=== PATIENT | female | born 1960 | race African-American/Black ===

== ENCOUNTER 2019-10-14 08:51 | Day surgery (SDC) | payer OTHER ==
[2019-10-11 17:55] VITALS: BMI 19.5
[2019-10-14] MEDS ORDERED: BUPIVACAINE HCL/PF 0.5% (5 MG/ML) 30 ML VIAL IJ ONE ×3 (10:44→11:56)
[2019-10-14] MEDS ORDERED: LIDOCAINE HCL 1%, 10 MG/ML (20ML VIAL) ONE (10:44)
[2019-10-14] MEDS ORDERED: PROPOFOL 20 ML ONE ×2 (10:46→11:19)
[2019-10-14] MEDS ORDERED: DEXAMETHASONE SOD PHOSPHATE 4 MG/1 ML VIAL ONE (10:46)
[2019-10-14] MEDS ORDERED: MIDAZOLAM HCL 2 MG/2 ML SINGLE DOSE VIAL ONE (10:46)
--- NOTE | 2019-10-14 11:00 | HP ---
History & Physical Update - History History: No Change - Physical Physical: No Change - Assessment Assessment: No Change - Plan Plan: No Change (see my office notes; informed consent obtained for excision of recurrent sebaceous cyst of the left axilla. r/t/a/'s d/w the patient.)
[2019-10-14] MEDS ORDERED: SODIUM CHLORIDE 0.9% P/F 10 ML VIAL IJ ONE (11:10)
[2019-10-14] MEDS ORDERED: ceFAZolin SODIUM 1 GM VIAL IVPB ONE (11:10)
[2019-10-14] MEDS ORDERED: ceFAZolin SODIUM 1 GM VIAL ONE (11:10)
[2019-10-14] MEDS ORDERED: BACITRACIN 15 GM TUBE TOPICAL OINTMENT ONE (11:51)
[2019-10-14] MEDS ORDERED: LIDOCAINE HCL 1%, 10 MG/ML (20ML VIAL) INF ONE (11:55)
[2019-10-14] MEDS ORDERED: ONDANSETRON 4 MG/2 ML VIAL IVPUSH PRN (12:09)
[2019-10-14] MEDS ORDERED: oxyCODONE HCL 5 MG TABLET PO PRN ×2 (12:09)
--- NOTE | 2019-10-14 12:13 | OP ---
Operative Note - Note: Operative Date: 10/14/19 Pre-Operative Diagnosis: recurrent sebaceous cyst of the left axilla Operation: excision recurrent sebaceous cyst of the left axilla. Findings: 6 cm. recurrent sebaceous cyst. Post-Operative Diagnosis: Same as Pre-op Surgeon: Moises Bassett Anesthesiologist/SEXUAL ASSAULT COUNSELOR: Aide Bean Anesthesia: MAC Specimens Removed: sebaceous cyst and overlying skin Estimated Blood Loss (mls): 5
[2019-10-14] MEDS ORDERED: LACTATED RINGERS SOLUTION 1,000 ML IV SCH (12:15)
[2019-10-14 12:33] VITALS: TEMP 97.4
[2019-10-14 13:36] VITALS: BP 139/73; PULSE 82
--- NOTE | 2019-10-16 16:02 | PATH ---
Surgical Pathology Report Patient Name: RAMON TORRES [facility]. Rec. #: [id number] /Age/Gender: 1960 (Age: 58) / F Account: [id number] Location: [facility] SURGICAL Taken: 10/14/2019 Received: 10/14/2019 Reported: 10/16/2019 Physicians: Moises Bassett MD Specimen(s) Received SEBACOUS CYST LEFT AXILLA Clinical History Left axilla sebaceous cyst Final Diagnosis LEFT AXILLA SEBACEOUS CYST, EXCISION: EPIDERMAL INCLUSION CYST. Electronically Signed Kishor Ramirez M.D. Gross Description Received in formalin labeled "left axilla sebaceous cyst," is a 3.0 x 2.3 x 2.3 cm intact cyst which is surfaced by a 4.0 x 0.8 cm brown, elliptical portion of skin. The cyst lumen contains little-brown sebaceous material. A key account representative section is submitted in one cassette. [facility]
--- NOTE | 2019-10-16 16:06 | OP ---
DATE OF OPERATION: 10/14/2019 PREOPERATIVE DIAGNOSIS: Recurrent sebaceous cyst of the left axilla. POSTOPERATIVE DIAGNOSIS: Recurrent sebaceous cyst of the left axilla. PROCEDURE: Excision of recurrent sebaceous cyst of the left axilla. SURGEON: Moises Bassett MD ANESTHESIA: Local with IV sedation. OPERATIVE FINDINGS: There was a 6-cm recurrent sebaceous cyst in the left axilla. The rest of the findings were unremarkable. DESCRIPTION OF PROCEDURE: The patient was placed on the operating table in the supine position with the left upper extremity abducted and the patient's hand behind her head. The area was prepped with ChloraPrep and draped in sterile fashion, and a timeout was taken and an incision mapped out and the operative field infiltrated with 1% Xylocaine and 0.5% Marcaine in equal concentration. An incision was made with a scalpel and taken down through skin and subcutaneous tissue, and then, the sebaceous cyst and overlying skin were excised using scalpel and electrocautery. The specimen was passed off the operative field and sent fresh for pathological examination. Hemostasis was secured with electrocautery, and the wound copiously irrigated with sterile saline. The deep fascia was closed with interrupted 3-0 Vicryl, the deep dermis with interrupted 3-0 Vicryl, and the skin edges with 3-0 nylon vertical mattress sutures. Bacitracin and dry sterile dressings were placed and the procedure terminated at this point and the patient transferred to the postanesthesia care unit in stable condition, awake and alert. ESTIMATED BLOOD LOSS: 5 mL. REPLACEMENTS: Crystalloid. DRAINS: None. SPECIMENS: Sebaceous cyst to Pathology. I, Moises Bassett, was physically present in the operating room from the time the patient was placed on the operating table until she was transferred to the postanesthesia care unit in my accompaniment. MD JOSH Kaur/[id number]
== END 2019-10-14 13:55 | disposition home or self-care (01) ==
LOC: JASU-SURG 08:51
PROVIDERS: ATTEND Surgery
PROC: 0HBCXZZ Excision of Left Upper Arm Skin, External Approach (ICD-10-PCS; 2019-10-14)
PROC: 0XQ5XZZ Repair Left Axilla, External Approach (ICD-10-PCS; principal; 2019-10-14 11:00)
DX: L72.0 Epidermal cyst (principal)
CPT/HCPCS: 88304-TC; 94760

== ENCOUNTER 2023-03-09 14:41 | Emergency (ER) | payer OTHER ==
[2023-03-09 14:56] VITALS: BP 130/60; PULSE 73; RESP 17; TEMP 98.2; BMI 18.8
[2023-03-09] MEDS ORDERED: IBUPROFEN 400 MG TABLET (FP) PO ONE ×2 (15:18→15:19)
== END 2023-03-09 16:48 | disposition home or self-care (01) ==
LOC: JERFT 14:41
DX: S13.4XXA Sprain of ligaments of cervical spine, initial encounter (principal); V49.50XA Passenger injured in collision with unspecified motor vehicles in traffic accident, initial encounter
CPT/HCPCS: 72050-TC-FY; 99283-25